=== PATIENT | female | born 1970 | race Caucasian/White ===

== ENCOUNTER → 2017-08-30 | Outpatient (CLI) | payer OTHER ==
--- NOTE | 2017-08-30 16:34 | CT ---
Examination: CT of the abdomen and pelvis with contrast. Clinical History: Unspecified abdominal pain, nausea and vomiting for months. Technique: Multiple axial images were obtained from the lung bases down to the pubic symphysis follow ing the intravenous administration of 100 ml of Omnipaque 350. Oral contrast was also administered. D ose reduction techniques including automated exposure control (AEC) and adjustment of mA and kV were utilized. Comparison: None available. Findings: The visualized portion of the lung bases is unremarkable. The liver, spleen, pancreas, gallbladder, adrenal glands and kidneys are normal in appearance. The abdominal aorta is normal in caliber. Incidental note is made of a circumaortic left renal vein. The bowel gas pattern is non-obstructive. There is no free air. The colon is within normal limits. The small bowel is grossly unremarkable. The appendix is visualized and is normal in appearance. The bladder and uterus are within normal limits. No pelvic mass or fluid collection is noted. No enlarged lymph nodes, by CT criteria, are noted in the mesenteric, periaortic or deep pelvic regio ns. There is a tiny fat containing ventral hernia noted at the level of the umbilicus, with the anterior abdominal wall defect measuring approximately 9 mm in the craniocaudal dimension. No acute osseous abnormality is noted. Impression: 1. No acute intra-abdominal pathology. 2. Tiny fat containing ventral hernia at the level of the umbilicus. Reported By:
== END ==
LOC: RAD 10:10
PROVIDERS: ATTEND Nurse Practitioner
DX: R10.84 Generalized abdominal pain (principal); R11.2 Nausea with vomiting, unspecified; K43.9 Ventral hernia without obstruction or gangrene
CPT/HCPCS: 74177; A4222